=== PATIENT | female | born 1965 | race American Indian/Alaskan Native ===

== ENCOUNTER 2017-03-27 12:19 | Emergency (ER) | payer OTHER ==
[2017-03-27 12:33] VITALS: RESP 20; TEMP 98.1
--- NOTE | 2017-03-27 14:03 | ED PDOC ---
Arrival/HPI - General Chief Complaint: Lower Extremity Problem/Injury Time Seen by Provider: 03/27/17 13:04 Historian: Patient - History of Present Illness Narrative History of Present Illness (Text): 03/27/17 13:49 51-year-old female presents today with right knee pain. Patient states she took a step and felt a pop in the knee and felt pain along the medial aspect of the knee. Incident occurred last night. Patient denies numbness weakness or tingling in the extremity. Denies calf pain. Denies fevers or chills. No medications have been taken for pain at home. Patient states the pain is localized directly over the medial aspect of the knee and is nonradiating. Patient states pain is worse when she applies pressure to the leg. No other complaints Symptom Onset: Sudden Symptom Course: Unchanged Quality: Pressure, Stabbing Severity Level: 6 Past Medical History - Provider Review Nursing Documentation Reviewed: Yes - Travel History Have you recently traveled outside [place] w/in the past 3 mons?: No - Infectious Disease Hx of Infectious Diseases: None - Reproductive Menopause: Yes - Psychiatric Hx Substance Use: No - Anesthesia Hx Anesthesia: No Hx Anesthesia Reactions: No Hx Malignant Hyperthermia: No Family/Social History - Physician Review Nursing Documentation Reviewed: Yes Family/Social History: Unknown Family HX Smoking Status: Never Smoked Hx Alcohol Use: Yes Frequency of alcohol use: Socially Hx Substance Use: No Allergies/Home Meds Allergies/Adverse Reactions: Allergies No Known Allergies Allergy (Verified 03/27/17 12:32) Review of Systems - Review of Systems Constitutional: absent: Fatigue, Fevers Respiratory: absent: SOB, Cough Cardiovascular: absent: Chest Pain, Palpitations Gastrointestinal: absent: Abdominal Pain, Nausea, Vomiting, Food Intolerance Genitourinary Female: absent: Dysuria, Frequency Musculoskeletal: Arthralgias. absent: Back Pain, Neck Pain Skin: absent: Rash, Pruritis Neurological: absent: Headache, Dizziness Psychiatric: absent: Anxiety, Depression Physical Exam Vital Signs Reviewed: Yes Vital Signs Temp Pulse Resp BP Pulse Ox 03/27/17 12:28 98.1 F 60 20 121/81 96 Temperature: Afebrile Blood Pressure: Normal Pulse: Regular Respiratory Rate: Normal Appearance: Positive for: Well-Appearing, Non-Toxic, Comfortable Pain Distress: None Mental Status: Positive for: Alert and Oriented X 3 - Systems Exam Head: Present: Atraumatic Mouth: Present: Moist Mucous Membranes Neck: Present: Normal Range of Motion Respiratory/Chest: Present: Clear to Auscultation Cardiovascular: Present: Regular Rate and Rhythm Lower Extremity: Present: NORMAL PULSES, Normal ROM, Tenderness (Right knee: There is minimal tenderness noted over the medial aspect of the knee. There is a small amount of edema noted without obvious effusion noted. Full range of motion of the knee. No calf tenderness. Sensation and distal pulses intact.), Swelling, Neurovascularly Intact, Capillary Refill < 2 s. No: CALF TENDERNESS, Erythema, Deformity, Temperature Abnormalties Neurological: Present: GCS=15, Speech Normal Skin: Present: Warm, Dry, Normal Color. No: Rashes Psychiatric: Present: Alert, Oriented x 3 Medical Decision Making ED Course and Treatment: 03/27/17 13:51 Patient nontoxic well-appearing in no distress with stable vital signs X-rays of the knee: no fracture toradol Patient placed in knee immobilizer. Crutches given for ambulation I discussed all results with patient advised to followup with the orthopedist for the next 2 days. Return if symptoms worsen persist or new symptoms develop i advised the patient that although the xrays show no fracture; there is still a possibility for ligamentous or tendon injury the patient must see the orthopedist for further evaluation. Patient verbalizes understanding of discharge instructions and need for immediate followup. all aspects of this case were discussed the attending of record. Impression: knee pain Motrin every 6 hours as needed for pain Rest, ice, compression, elevation Use crutches for ambulation Followup with the orthopedist within the next 2 days Followup with primary care physician within the next 2 days Return if symptoms worsen persist or if new symptoms develop - RAD Interpretation Radiology Orders: 03/27/17 13:04 KNEE W PATELLA RIGHT 3 VIEW [RAD] Stat - Medication Orders Current Medication Orders: Discontinued Medications Ketorolac Tromethamine (Toradol) 60 mg IM STAT STA Stop: 03/27/17 13:05 Last Admin: 03/27/17 13:18 Dose: 60 mg [facility] Pain Assessment Document 03/27/17 13:18 HI (Rec: 03/27/17 13:18 CA [id number]) Pain Reassessment Is this a pain reassessment? No Sleep Is patient sleeping during reassessment? No Presence of Pain Presence of Pain Yes Location Upper or Lower Lower Pain Location Body Site Back IM Administration Charges Document 03/27/17 13:18 HI (Rec: 03/27/17 13:18 CA [id number]) Charges for Administration # of IM Administrations 1 Disposition/Present on Arrival - Present on Arrival Any Indicators Present on Arrival: No History of DVT/PE: No History of Uncontrolled Diabetes: No Urinary Catheter: No History of Decub. Ulcer: No History Surgical Site Infection Following: None - Disposition Have Diagnosis and Disposition been Completed?: Yes Diagnosis: Knee pain Disposition: HOME/ ROUTINE Disposition Time: 14:03 Patient Plan: Discharge Condition: GOOD Discharge Instructions (ExitCare): Knee Pain (ED) Additional Instructions: Motrin every 6 hours as needed for pain Rest, ice, compression, elevation Use crutches for ambulation Followup with the orthopedist within the next 2 days Followup with primary care physician within the next 2 days Return if symptoms worsen persist or if new symptoms develop Prescriptions: Ibuprofen [Motrin] 600 mg PO Q6H PRN #20 tab PRN Reason: pain/fever reduction Referrals: Scott Warren DO [Staff Provider] - Follow up with primary Taty Moya MD [Staff Provider] - Follow up with primary Forms: [facility] (Hungarian), WORK NOTE
--- NOTE | 2017-03-27 14:22 | RAD ---
PROCEDURE: Right Knee Radiographs. HISTORY: COMPARISON: No prior. FINDINGS: BONES: No acute displaced fracture. Fragmentation of the tibial plateau appears well corticated and chronic. Degenerative changes. JOINTS: No dislocation. Mild joint space narrowing. JOINT EFFUSION: No significant joint effusion. OTHER FINDINGS: None. IMPRESSION: Degenerative changes. No acute displaced fracture, dislocation, or significant joint effusion identified. If symptoms persist, or if there is continued clinical concern, x-ray follow-up in 7-10 days should be considered.
[2017-03-27 14:54] VITALS: BP 122/71; PULSE 91; O2SAT 98
== END 2017-03-27 14:50 | disposition home or self-care (01) ==
LOC: ED 12:19
DX: M25.561 Pain in right knee (principal)
CPT/HCPCS: 73562; 96372; 99283; J1885